=== PATIENT | female | born 1980 | race Native Hawaiian/Other Pacific Islander ===

== ENCOUNTER 2018-07-11 16:50 | Emergency (ER) | payer SELFPAY ==
--- NOTE | 2018-07-11 17:01 | Emergency Department Report ---
Blank Doc - Documentation Documentation: 38 y o female presents to ED cc of headache and nausea x 5 days FRONTAL and nayla es. feels a sharp pain on right side of head HTN meds started 3 weeks ago states took home preg test 2 days ago and negative
[2018-07-11] MEDS ORDERED: REGLAN IV ONE (17:58)
[2018-07-11] MEDS ORDERED: NACL 0.9% 1000 ML 1,000 ML IV ONE (17:58)
[2018-07-11] MEDS ORDERED: DECADRON IV ONE (17:58)
[2018-07-11] MEDS ORDERED: BENADRYL IV ONE (17:58)
[2018-07-11] MEDS ORDERED: TYLENOL PO ONE (17:59)
[2018-07-11 19:06] LABS: HCG Qualitative,Urine Negative (Negative)
--- NOTE | 2018-07-11 19:38 | Emergency Department Report ---
ED Headache HPI - General Chief Complaint: Headache Stated Complaint: NAUSEA/HEAD PAIN SINCE SATURDAY Time Seen by Provider: 07/11/18 16:56 - History of Present Illness Initial Comments: 38 y o female presents to ED cc of headache and nausea x 5 days FRONTAL and sides.feels a sharp pain on right side of head hx of HTN meds started 3 weeks ago on lisinopril, states took home preg test 2 days ago and negative has hx of headache however this headache is much worse than headaches of past in pain and duration there is no blurred vision no vomiting no dizziness no lightheadedness no Timing/Duration: other (5 days ) Quality: moderate Head Injury Location: frontal Recent Head Trauma: frequent headaches Associated Symptoms: facial pain, nausea/vomiting Allergies/Adverse Reactions: Allergies No Known Allergies Allergy (Unverified 07/11/18 16:56) Home Medications: Ambulatory Orders Acetaminophen [Tylenol Extra Strength] 1,000 mg PO QID PRN #30 tablet 07/11/18 Metoclopramide [Reglan] 10 mg PO Q6H PRN #30 tablet 07/11/18 diphenhydrAMINE [Benadryl CAP] 25 mg PO Q6HR PRN #30 capsule 07/11/18 ED Review of Systems ROS: Stated complaint: NAUSEA/HEAD PAIN SINCE SATURDAY Other details as noted in HPI Constitutional: denies: chills, fever Eyes: denies: eye pain, eye discharge, vision change ENT: denies: ear pain, throat pain Respiratory: denies: cough, shortness of breath, wheezing Cardiovascular: denies: chest pain, palpitations Endocrine: no symptoms reported Gastrointestinal: denies: abdominal pain, nausea, diarrhea Genitourinary: denies: urgency, dysuria, discharge Musculoskeletal: denies: back pain, joint swelling, arthralgia Skin: denies: rash, lesions Neurological: headache. denies: weakness, numbness, paresthesias, confusion, abnormal gait, vertigo Psychiatric: denies: anxiety, depression Hematological/Lymphatic: denies: easy bleeding, easy bruising ED Past Medical Hx - Past Medical History Hx Hypertension: Yes Additional medical history: CANT SLEEP - Surgical History Past Surgical History?: No - Social History Smoking Status: Never Smoker Substance Use Type: None - Medications Home Medications: Home Medications Medication Instructions Recorded Confirmed Last Taken Type Acetaminophen [Tylenol Extra 1,000 mg PO QID PRN #30 tablet 07/11/18 Unknown Rx Strength] Metoclopramide [Reglan] 10 mg PO Q6H PRN #30 tablet 07/11/18 Unknown Rx diphenhydrAMINE [Benadryl CAP] 25 mg PO Q6HR PRN #30 capsule 07/11/18 Unknown Rx ED Physical Exam - General Limitations: No Limitations General appearance: alert, in no apparent distress - Head Head exam: Present: atraumatic, normocephalic, normal inspection - Eye Eye exam: Present: normal appearance, PERRL, EOMI Pupils: Present: normal accommodation - ENT ENT exam: Present: normal exam, normal orophraynx, mucous membranes moist, TM's normal bilaterally, normal external ear exam - Expanded ENT Exam Expanded Ear exam: Present: normal external inspection Mouth exam: Absent: trismus Teeth exam: Present: normal inspection Throat exam: Positive: normal inspection. Negative: tonsillar erythema - Neck Neck exam: Present: normal inspection, full ROM. Absent: tenderness, meningismus, lymphadenopathy, thyromegaly - Respiratory Respiratory exam: Present: normal lung sounds bilaterally. Absent: respiratory distress, wheezes, stridor, chest wall tenderness - Cardiovascular Cardiovascular Exam: Present: regular rate, normal rhythm, normal heart sounds. Absent: systolic murmur, diastolic murmur, rubs, gallop - GI/Abdominal GI/Abdominal exam: Present: soft, normal bowel sounds. Absent: distended, tenderness, guarding, rebound, rigid, bruit, hernia - Rectal Rectal exam: Present: deferred - Extremities Exam Extremities exam: Present: normal inspection - Back Exam Back exam: Present: normal inspection, full ROM. Absent: tenderness, CVA tenderness (R), CVA tenderness (L), muscle spasm, paraspinal tenderness, vertebral tenderness, rash noted - Neurological Exam Neurological exam: Present: alert, oriented X3, CN II-XII intact, normal gait, motor sensory deficit, reflexes normal - Expanded Neurological Exam Expanded Patient oriented to: Present: person, place, time Speech: Present: fluid speech Cranial nerves: EOM's Intact: Normal, Gag Reflex: Normal, Tongue Deviation: Normal, Nystagmus: Normal, Facial Sensation: Normal, Facial Palsy with Forehead Movement: Normal, Facial Palsy without Forehead Movement: Normal Cerebellar function: Finger to Nose: Normal, Heel to Nieves: Normal, Romberg: Normal Upper motor neuron: Jordin Neglect: Normal, Pronator Drift: Normal, Babinski Sign: Normal, Sensory Extinction: Normal Sensory exam: Upper Extremity Light Touch: Normal, Upper Extremity Pin Prick: Normal, Upper Extremity Temperature: Normal, UE 2 Point Discrimination: Normal, Lower Extremity Light Touch: Normal, Lower Extremity Pin Prick: Normal, Lower Extremity Temperature: Normal, LE 2 Point Discrimination: Normal Motor strength exam: RUE: 5, LUE: 5, RLE: 5, LLE: 5 DTR: bicep (R): 2+, bicep (L): 2+, knee (R): 2+, knee (L): 2+, ankle (R): 2+, ankle (L): 2+ Best Eye Response (Werner): (4) open spontaneously Best Motor Response (Blunt): (6) obeys commands Best Verbal Response (Blunt): (5) oriented Werner Total: 15 - Psychiatric Psychiatric exam: Present: normal affect, normal mood - Skin Skin exam: Present: warm, dry, intact, normal color. Absent: rash ED Course Vital Signs 07/11/18 16:57 Temperature 97.8 F Pulse Rate 114 H Respiratory 20 Rate Blood Pressure 159/86 O2 Sat by Pulse 100 Oximetry ED Medical Decision Making - Lab Data Labs 07/11/18 17:30 Urine HCG, Qual Negative - Radiology Data Radiology results: report reviewed, image reviewed cc: MATTIE MORALES PROCEDURE: CT HEAD/BRAIN WO CON TECHNIQUE: Axial helical imaging from the skull base to the vertex. HISTORY: headcahe COMPARISONS: None FINDINGS: There is no evidence of an acute intracranial process, intracranial hemorrhage or mass effect. The ventricles are normal size. The visualized portions of the orbits, paranasal and mastoid sinuses are unremarkable. The bony structures are unremarkable. IMPRESSION: 1. No evidence of an acute intracranial process, intracranial hemorrhage or mass effect. If the patient remains symptomatic and if further imaging is required, MRI of the brain may be helpful. This document is electronically signed by Beckie Wood MD., July 11 2018 07:59:27 PM ET Transcribed By: ED Dictated By: BECKIE WOOD MD Electronically Authenticated By: BECKIE WOOD MD Signed Date/Time: 07/11/182000 DD/ 09 TD/TT: 07/11/181910 - Medical Decision Making headache is resolve, plan dc to home with rx for benadryl, reglan. tyelnol, follow up with pcp in 2-3 days return to ed if symptoms worsen, pt verbalized agreement and understanding with discharge plan. Critical care attestation.: If time is entered above; I have spent that time in minutes in the direct care of this critically ill patient, excluding procedure time. ED Disposition Clinical Impression: Headache Qualifiers: Headache type: unspecified Headache chronicity pattern: acute headache Intractability: not intractable Qualified Code(s): R51 - Headache Disposition: DC-01 TO HOME OR SELFCARE Is pt being admited?: No Does the pt Need Aspirin: No Condition: Stable Instructions: Acute Headache (ED) Prescriptions: diphenhydrAMINE [Benadryl CAP] 25 mg PO Q6HR PRN #30 capsule PRN Reason: Headache Metoclopramide [Reglan] 10 mg PO Q6H PRN #30 tablet PRN Reason: Headache Acetaminophen [Tylenol Extra Strength] 1,000 mg PO QID PRN #30 tablet PRN Reason: Headache Referrals: [facility] MD DONTA [Primary Care Provider] - 3-5 Days MONIQUE VILLAR MD [Staff Physician] - 3-5 Days Forms: Work/School Release Form(ED) Time of Disposition: 20:11
--- NOTE | 2018-07-11 20:01 | Cat Scan Report ---
PROCEDURE: CT HEAD/BRAIN WO CON TECHNIQUE: Axial helical imaging from the skull base to the vertex. HISTORY: headcahe COMPARISONS: None FINDINGS: There is no evidence of an acute intracranial process, intracranial hemorrhage or mass effect. The ventricles are normal size. The visualized portions of the orbits, paranasal and mastoid sinuses are unremarkable. The bony structures are unremarkable. IMPRESSION: 1. No evidence of an acute intracranial process, intracranial hemorrhage or mass effect. If the patient remains symptomatic and if further imaging is required, MRI of the brain may be helpfu l. This document is electronically signed by Beckie Wood MD., July 11 2018 07:59:27 PM ET
[2018-07-11 20:20] VITALS: BP 150/88
== END 2018-07-11 20:20 | disposition home or self-care (01) ==
LOC: ED 16:50
DX: R51 Headache (principal); R11.2 Nausea with vomiting, unspecified; I10 Essential (primary) hypertension
CPT/HCPCS: 70450; 81025; 96361; 96374; 96375; 99284; J1100; J1200; J2765; J7030